=== PATIENT | male | born 1980 | race African-American/Black ===

== ENCOUNTER 2023-08-03 23:43 | Emergency (ER) | payer SELFPAY ==
[2023-08-04] MEDS ORDERED: HYDROmorphone 1 MG/ML Syringe IM ONE (01:18)
[2023-08-04] MEDS ORDERED: Orphenadrine 100 MG Tab.ER PO STA (01:18)
== END 2023-08-04 01:35 | disposition home or self-care (01) ==
LOC: JD.ED 23:43
DX: S46.912A Strain of unspecified muscle, fascia and tendon at shoulder and upper arm level, left arm, initial encounter (principal); F17.210 Nicotine dependence, cigarettes, uncomplicated; X58.XXXA Exposure to other specified factors, initial encounter
CPT/HCPCS: 96372; 99283; A9270; J1170